=== PATIENT | female | born 1990 | race Caucasian/White ===

== ENCOUNTER 2021-01-30 05:29 | Day surgery (SDC) | payer BC, OTHER ==
[2021-01-29 16:14] VITALS: BMI 25.8
[2021-01-30 07:34] LABS: HEMATOCRIT 30.1 % (32.4-45.2); MCH 29.5 pg (25.7-33.7); MCHC 33.2 g/dl (32.0-36.0); MEAN CELL VOLUME 88.8 fl (80-96); MEAN PLT VOLUME 8.7 fl (7.5-11.1); PLATELET COUNT 346 K/MM3 (134-434); RBC 3.39 M/mm3 (3.60-5.2); RDW 13.4 % (11.6-15.6); WHITE BLOOD COUNT 6.8 K/mm3 (4.0-10.0)
[2021-01-30 07:51] LABS: INR 1.14 (0.83-1.09)
[2021-01-30 07:54] LABS: ACTIVATED PTT 32.2 SECONDS (25.2-36.5)
[2021-01-30 07:57] LABS: CHLORIDE 107 mmol/L (98-107); SODIUM 134 mmol/L (136-145)
[2021-01-30 08:00] LABS: CALCIUM 8.7 mg/dL (8.5-10.1)
[2021-01-30 08:01] LABS: ALBUMIN 3.6 g/dl (3.4-5.0); ANION GAP 9 MMOL/L (8-16); BLOOD UREA NITROGEN 66.5 mg/dL (7-18); CO2 18 mmol/L (21-32); GLUCOSE,RANDOM 115 mg/dL (74-106)
[2021-01-30 08:04] LABS: SGOT/AST 13 U/L (15-37)
[2021-01-30 08:06] LABS: BILIRUBIN,TOTAL 0.4 mg/dL (0.2-1); TOT PROT 7.8 g/dl (6.4-8.2)
[2021-01-30 08:07] LABS: ALK PHOS 145 U/L (45-117)
[2021-01-30 08:11] LABS: SGPT/ALT 12 U/L (13-61)
[2021-01-30 08:26] LABS: CREATININE 9.8 mg/dL (0.55-1.3)
[2021-01-30] MEDS ORDERED: MIDAZOLAM HCL 2 MG/2 ML SINGLE DOSE VIAL ONE (09:27)
[2021-01-30] MEDS ORDERED: ceFAZolin SODIUM 1 GM VIAL IVPB ONE (09:30)
[2021-01-30] MEDS ORDERED: LIDOCAINE HCL 1%, 10 MG/ML (20ML VIAL) PNB ONE (10:06)
[2021-01-30] MEDS ORDERED: METOPROLOL TARTRATE 5 MG/5 ML VIAL ONE (11:24)
[2021-01-30] MEDS ORDERED: METOPROLOL TARTRATE 5 MG/5 ML VIAL IVPB ONE (11:28)
[2021-01-30] MEDS ORDERED: ONDANSETRON 4 MG/2 ML VIAL ONE ×2 (11:37→12:20)
[2021-01-30] MEDS: ONDANSETRON 4 MG/2 ML VIAL IVPUSH PRN ×2 (11:44→12:25)
[2021-01-30 12:33] VITALS: TEMP 97.7
[2021-01-30] MEDS ORDERED: METOPROLOL TARTRATE 5 MG/5 ML VIAL IVPUSH ONE (14:10)
[2021-01-30] MEDS ORDERED: LISINOPRIL 20 MG TABLET PO ONE ×2 (14:15)
[2021-01-30] MEDS ORDERED: ACETAMINOPHEN 1000 MG/100 ML VIAL (NON FORMULARY) IVPB ONE ×2 (14:26→14:30)
[2021-01-30] MEDS ORDERED: ACETAMINOPHEN INJECTION 100 ML IVPB ONE (14:26)
[2021-01-30 16:02] VITALS: BP 151/96; PULSE 76
== END 2021-01-30 15:45 | disposition home or self-care (01) ==
LOC: JASU-SURG 05:29
PROVIDERS: ATTEND Surgery Vascular Surgery
PROC: B513ZZA Fluoroscopy of Right Jugular Veins, Guidance (ICD-10-PCS; 2021-01-30)
PROC: 05HM33Z Insertion of Infusion Device into Right Internal Jugular Vein, Percutaneous Approach (ICD-10-PCS; principal; 2021-01-30 09:00)
DX: N17.9 Acute kidney failure, unspecified (principal)
CPT/HCPCS: 36561; C1881; 36415; 71045-TC-FY; 76000-TC-FY; 80053; 84703; 85027; 85610; 85730; 94760; J0131